=== PATIENT | female | born 1985 | race Hispanic/Latino ===

== ENCOUNTER 2025-02-14 00:47 | Inpatient (IN) | payer OTHER, SELFPAY ==
[2025-02-14] MEDS ORDERED: Ondansetron PF 4 MG/2 ML Vial IVP PRN (01:22)
[2025-02-14 03:43] LABS: #Basophils Less than 0.03 10x3/uL (0.0-0.2); #Eosinophils 0.07 10x3/uL (0.0-0.5); #Monocytes 0.83 10x3/uL (0.0-1.1); #Neutrophils 7.23 10x3/uL (1.5-8.4); %Basophils 0.2 % (0.0-2.0); %Eosinophils 0.7 % (0.0-6.0); %Lymphocytes 21.9 % (18.0-47.0); %Monocytes 7.9 % (0.0-10.0); %Neutrophils 68.9 % (40.0-75.0); Hematocrit 32.8 % (34.9-44.5); Hemoglobin 10.9 g/dL (12.0-15.5); Mean Corpuscular Hemoglobin 31.7 pg (27.0-33.0); Mean Corpuscular Volume 95.3 fL (81.6-98.3); Platelet Count 248 10x3/uL (150-450); Red Blood Cell (RBC) Count 3.44 10x6/uL (3.90-5.03); White Blood Cell (WBC) Count 10.48 10x3/uL (3.5-10.5)
[2025-02-14 04:01] LABS: Anion Gap 12 mmol/L (10-20); BUN (Urea Nitrogen) 11 mg/dL (7.0-18.7); Calc. Creatinine Clearance 89 mL/min (70-130); Calcium 7.2 mg/dL (7.8-10.44); Carbon Dioxide 21 mmol/L (22-29); Chloride 109 mmol/L (98-107); Glucose 92 mg/dL (70-105); Potassium 3.7 mmol/L (3.5-5.1); Sodium 138 mmol/L (136-145)
[2025-02-14] MEDS: Ketorolac Tromethamine 30 MG (1 mL) VIAL IVP PRN (05:53)
[2025-02-14 06:52] VITALS: BP 80/55
[2025-02-14] MEDS: Famotidine/PF 20 mg/2ml Vial SLOW IVP SCH (08:24)
[2025-02-14] MEDS: Enoxaparin 40 MG (0.4 mL) SYRINGE SC SCH (08:25)
[2025-02-14 10:18] VITALS: BMI 15.8
[2025-02-14 10:44] LABS: Magnesium 1.9 mg/dL (1.6-2.6)
[2025-02-14] MEDS: NOREPINEPHRINE 8 MG/250 ML-D5W 250 ML IVPB SCH (22:37)
[2025-02-15 03:53] LABS: #Basophils Less than 0.03 10x3/uL (0.0-0.2); #Eosinophils Less than 0.03 10x3/uL (0.0-0.5); #Monocytes 0.72 10x3/uL (0.0-1.1); #Neutrophils 5.22 10x3/uL (1.5-8.4); %Basophils 0.1 % (0.0-2.0); %Eosinophils 0.2 % (0.0-6.0); %Lymphocytes 25.1 % (18.0-47.0); %Monocytes 9.0 % (0.0-10.0); %Neutrophils 65.2 % (40.0-75.0); Hematocrit 32.1 % (34.9-44.5); Hemoglobin 10.5 g/dL (12.0-15.5); Mean Corpuscular Hemoglobin 30.5 pg (27.0-33.0); Mean Corpuscular Volume 93.3 fL (81.6-98.3); Platelet Count 254 10x3/uL (150-450); Red Blood Cell (RBC) Count 3.44 10x6/uL (3.90-5.03); White Blood Cell (WBC) Count 8.01 10x3/uL (3.5-10.5)
[2025-02-15 04:06] LABS: Anion Gap 10 mmol/L (10-20); BUN (Urea Nitrogen) 8 mg/dL (7.0-18.7); Calc. Creatinine Clearance 100 mL/min (70-130); Calcium 7.3 mg/dL (7.8-10.44); Carbon Dioxide 20 mmol/L (22-29); Chloride 111 mmol/L (98-107); Glucose 94 mg/dL (70-105); Potassium 3.7 mmol/L (3.5-5.1); Sodium 137 mmol/L (136-145)
[2025-02-16 00:59] VITALS: BMI 22.5
[2025-02-16] MEDS ORDERED: Electrolyte Replacement Protocol 1 EACH FS SCH (09:00)
[2025-02-16] MEDS: Transdermal Patch Removal TOP SCH (10:10)
[2025-02-16 10:46] VITALS: TEMP 98.1
== END 2025-02-16 12:13 | disposition home or self-care (01) | DRG 871 ==
LOC: CSHTELE 00:54 → CSHICU 07:20
PROVIDERS: ADMIT Hospitalist; ATTEND Hospitalist
PROC: 3E03329 Introduction of Other Anti-infective into Peripheral Vein, Percutaneous Approach (ICD-10-PCS; principal; 2025-02-14)
PROC: 3E033XZ Introduction of Vasopressor into Peripheral Vein, Percutaneous Approach (ICD-10-PCS; 2025-02-14)
DX: A41.51 Sepsis due to Escherichia coli [E. coli] (principal); R65.21 Severe sepsis with septic shock; N10 Acute pyelonephritis; E87.6 Hypokalemia; E83.42 Hypomagnesemia; Z79.899 Other long term (current) drug therapy; H54.61 Unqualified visual loss, right eye, normal vision left eye; Z98.51 Tubal ligation status; Z88.5 Allergy status to narcotic agent; F15.10 Other stimulant abuse, uncomplicated; F12.10 Cannabis abuse, uncomplicated
CPT/HCPCS: 36415; 80048; 83735; 85025; 87040; J0692; J1308; J1885; J7030; J7120